=== PATIENT | male | born 1980 | race Caucasian/White ===

== ENCOUNTER 2018-07-08 07:45 | Inpatient (IN) | payer MEDICAID ==
[2018-07-08 11:47] LABS: WHITE BLOOD COUNT 2.4 10^3/ul (4.8-10.8)
[2018-07-08 11:47] LABS: ABNORMAL IP MESSAGE 1; HEMATOCRIT 34.1 % (42.0-52.0); HEMOGLOBIN 11.4 g/dl (14.0-18.0); MEAN CORPUSCULAR HEMOGLOBIN 34.1 pg (29.0-33.0); MEAN CORPUSCULAR HGB CONC 33.4 g/dl (32.0-37.0); MEAN CORPUSCULAR VOLUME 102.1 fl (82.0-101.0); MEAN PLATELET VOLUME 12.1 fl (7.4-10.4); PLATELET COUNT 33 10^3/UL (140-415); POSITIVE DIFF @See below; RED BLOOD COUNT 3.34 10^6/ul (4.70-6.10); RED CELL DISTRIBUTION WIDTH 15.2 % (11.5-14.5)
[2018-07-08 11:52] LABS: ADD MAN DIFF? YES
[2018-07-08 12:07] LABS: ALANINE AMINOTRANSFERASE 49 IU/L (13-69); ALBUMIN 2.6 g/dl (3.3-4.9); ALBUMIN/GLOBULIN RATIO 0.63; ALKALINE PHOSPHATASE 150 IU/L (42-121); ANION GAP 8 (5-13); ASPARTATE AMINO TRANSFERASE 67 IU/L (15-46); BILIRUBIN,INDIRECT 2.7 mg/dl (0-1.1); BILIRUBIN,TOTAL 2.7 mg/dl (0.2-1.3); BLOOD UREA NITROGEN 12 mg/dl (7-20); CALCIUM 7.9 mg/dl (8.4-10.2); CARBON DIOXIDE 24 mmol/L (21-31); CHLORIDE 108 mmol/L (97-110); CREATININE 0.57 mg/dl (0.61-1.24); Estimated GFR > 60 mL/min (>60); GLUCOSE 87 mg/dl (70-220); POTASSIUM 4.1 mmol/L (3.5-5.1); SODIUM 140 mmol/L (135-144); TOTAL PROTEIN 6.7 g/dl (6.1-8.1)
[2018-07-08 12:43] LABS: ANISOCYTOSIS 1+ (0-0); BAND NEUTROPHILS #M 0.1 10^3/ul (0.0-0.6); BAND NEUTROPHILS % (M) 5 % (0-4); EOSINOPHILS % (M) 5 % (0-7); GIANT THROMBO% (M) 1 % (0-0); LYMPHOCYTES #M 0.2 10^3/ul (0.8-2.9); LYMPHOCYTES % (M) 11 % (15-51); MONOCYTES % (M) 3 % (0-11); PLATELET ESTIMATE SIG DECREASED; POIKILOCYTOSIS 1+ (0-0); REACTIVE LYMPHOCYTES% (M) 2 % (0-0); SEG NEUT #M 1.8 10^3/ul (1.6-7.5); SEGMENTED NEUTROPHILS (M) % 74 % (39-77); SMUDGE%M 21 % (0-0)
[2018-07-08] MEDS: ONDANSETRON 4 MG INJ IV (13:09)
[2018-07-08] MEDS: HYDROmorphONE 1 MG/ML SYG IV (13:09)
[2018-07-08 13:15] LABS: INR 1.73; PARTIAL THROMBOPLASTIN TIME 35.5 Sec (23.0-35.0); PROTIME 20.3 Sec (11.9-14.9); PT RATIO 1.6
[2018-07-08] MEDS ORDERED: ONDANSETRON 4 MG INJ IV ×2 (14:00→16:00)
[2018-07-08] MEDS ORDERED: ACETAMINOPHEN 325 MG TAB PO (14:00)
[2018-07-08] MEDS ORDERED: ZOLPIDEM 5 MG TAB PO (16:00)
[2018-07-08] MEDS ORDERED: NACL 0.9% 3 ML SYG IV (16:00)
[2018-07-08] MEDS ORDERED: DOCUSATE SODIUM 100 MG CAP PO (16:00)
[2018-07-08] MEDS ORDERED: traMADol 50 MG TAB PO (18:00)
[2018-07-08] MEDS: morphine 4 MG/ML VIAL IV ×2 (18:14→22:26)
[2018-07-08] MEDS: FUROSEMIDE 40 MG INJ IV (18:15)
[2018-07-08] MEDS: SPIRONOLACTONE 50 MG TAB PO (18:15)
[2018-07-09 05:45] LABS: ADD MAN DIFF? NO
[2018-07-09 06:01] LABS: WHITE BLOOD COUNT 2.6 10^3/ul (4.8-10.8)
[2018-07-09 06:01] LABS: ABNORMAL IP MESSAGE 1; BASOPHILS % 0.4 % (0.0-2.0); EOSINOPHILS # 0.1 10^3/ul (0.0-0.5); EOSINOPHILS % 4.9 % (0.0-7.0); HEMATOCRIT 32.8 % (42.0-52.0); LYMPHOCYTES # 0.7 10^3/ul (0.8-2.9); LYMPHOCYTES % 25.1 % (15.0-51.0); MEAN CORPUSCULAR HEMOGLOBIN 34.2 pg (29.0-33.0); MEAN CORPUSCULAR HGB CONC 33.5 g/dl (32.0-37.0); MEAN CORPUSCULAR VOLUME 101.9 fl (82.0-101.0); MEAN PLATELET VOLUME 12.1 fl (7.4-10.4); MONOCYTE # 0.3 10^3/ul (0.3-0.9); MONOCYTES % 10.3 % (0.0-11.0); NEUTROPHIL # 1.6 10^3/ul (1.6-7.5); NEUTROPHILS % 59.3 % (39.0-77.0); PLATELET COUNT 33 10^3/UL (140-415); POSITIVE DIFF @See below; RED BLOOD COUNT 3.22 10^6/ul (4.70-6.10); RED CELL DISTRIBUTION WIDTH 15.3 % (11.5-14.5)
[2018-07-09 06:20] LABS: ALANINE AMINOTRANSFERASE 44 IU/L (13-69); ALBUMIN 2.4 g/dl (3.3-4.9); ALBUMIN/GLOBULIN RATIO 0.64; ALKALINE PHOSPHATASE 113 IU/L (42-121); ANION GAP 5 (5-13); ASPARTATE AMINO TRANSFERASE 58 IU/L (15-46); BILIRUBIN,INDIRECT 2.5 mg/dl (0-1.1); BILIRUBIN,TOTAL 2.5 mg/dl (0.2-1.3); BLOOD UREA NITROGEN 13 mg/dl (7-20); CALCIUM 7.8 mg/dl (8.4-10.2); CARBON DIOXIDE 27 mmol/L (21-31); CHLORIDE 111 mmol/L (97-110); CREATININE 0.66 mg/dl (0.61-1.24); Estimated GFR > 60 mL/min (>60); GLUCOSE 91 mg/dl (70-220); MAGNESIUM 1.8 mg/dl (1.7-2.5); PHOSPHORUS 4.3 mg/dl (2.5-4.9); POTASSIUM 3.7 mmol/L (3.5-5.1); SODIUM 143 mmol/L (135-144); TOTAL PROTEIN 6.1 g/dl (6.1-8.1)
[2018-07-09] MEDS: SPIRONOLACTONE 50 MG TAB PO ×2 (06:28→17:53)
[2018-07-09] MEDS: FUROSEMIDE 40 MG INJ IV ×2 (06:28→17:53)
[2018-07-09 07:24] LABS: HEMOGLOBIN A1C 4.3 % (0-5.9)
[2018-07-09 18:48] LABS: OCCULT BLOOD STOOL NEGATIVE (NEGATIVE)
[2018-07-09] MEDS ORDERED: ACETAMINOPHEN 325 MG TAB PO (19:00)
[2018-07-10] MEDS: morphine 4 MG/ML VIAL IV (00:13)
[2018-07-10] MEDS: SPIRONOLACTONE 50 MG TAB PO ×2 (05:19→17:39)
[2018-07-10] MEDS: FUROSEMIDE 40 MG INJ IV (05:20)
[2018-07-10 05:24] LABS: WHITE BLOOD COUNT 2.1 10^3/ul (4.8-10.8)
[2018-07-10 05:25] LABS: ABNORMAL IP MESSAGE 1; HEMATOCRIT 31.6 % (42.0-52.0); HEMOGLOBIN 10.5 g/dl (14.0-18.0); MEAN CORPUSCULAR HEMOGLOBIN 34.1 pg (29.0-33.0); MEAN CORPUSCULAR HGB CONC 33.2 g/dl (32.0-37.0); MEAN CORPUSCULAR VOLUME 102.6 fl (82.0-101.0); MEAN PLATELET VOLUME 11.9 fl (7.4-10.4); PLATELET COUNT 32 10^3/UL (140-415); POSITIVE DIFF @See below; RED BLOOD COUNT 3.08 10^6/ul (4.70-6.10); RED CELL DISTRIBUTION WIDTH 15.3 % (11.5-14.5)
[2018-07-10 05:28] LABS: HAAIG REFLEX REFLEX FILED
[2018-07-10 05:36] LABS: ADD MAN DIFF? YES
[2018-07-10 05:46] LABS: HEMOGLOBIN A1C 4.4 % (0-5.9)
[2018-07-10 05:53] LABS: ALANINE AMINOTRANSFERASE 43 IU/L (13-69); ALBUMIN 2.3 g/dl (3.3-4.9); ALKALINE PHOSPHATASE 112 IU/L (42-121); ANION GAP -1 (5-13); ASPARTATE AMINO TRANSFERASE 54 IU/L (15-46); BLOOD UREA NITROGEN 14 mg/dl (7-20); CALCIUM 7.6 mg/dl (8.4-10.2); CARBON DIOXIDE 29 mmol/L (21-31); CHLORIDE 111 mmol/L (97-110); CREATININE 0.71 mg/dl (0.61-1.24); Estimated GFR > 60 mL/min (>60); GLUCOSE 95 mg/dl (70-220); POTASSIUM 4.5 mmol/L (3.5-5.1); SODIUM 139 mmol/L (135-144); TOTAL PROTEIN 6.1 g/dl (6.1-8.1)
[2018-07-10 07:44] LABS: MAGNESIUM 1.6 mg/dl (1.7-2.5)
[2018-07-10 07:44] LABS: PHOSPHORUS 4.2 mg/dl (2.5-4.9)
[2018-07-10 08:15] LABS: HEPATITIS B SURFACE ANTIGEN NEGATIVE (NEGATIVE)
[2018-07-10 08:34] LABS: HEPATITIS B CORE ANTIBODY NEGATIVE (NEGATIVE); HEPATITIS C VIRAL ANTIBODY NEGATIVE (NEGATIVE)
[2018-07-10 08:54] LABS: ANISOCYTOSIS 1+ (0-0); BAND NEUTROPHILS #M 0.1 10^3/ul (0.0-0.6); BAND NEUTROPHILS % (M) 5 % (0-4); EOSINOPHILS % (M) 12 % (0-7); LYMPHOCYTES #M 0.3 10^3/ul (0.8-2.9); LYMPHOCYTES % (M) 17 % (15-51); MONOCYTE #M 0.1 10^3/ul (0.3-0.9); MONOCYTES % (M) 5 % (0-11); PLATELET ESTIMATE SIG DECREASED; POIKILOCYTOSIS 1+ (0-0); REACTIVE LYMPHOCYTES% (M) 2 % (0-0); SEG NEUT #M 1.2 10^3/ul (1.6-7.5); SEGMENTED NEUTROPHILS (M) % 59 % (39-77); SMUDGE%M 56 % (0-0)
[2018-07-10] MEDS: FUROSEMIDE 20 MG TAB PO (17:39)
[2018-07-10] MEDS: NADOLOL 40 MG TAB PO (17:40)
[2018-07-10] MEDS: MAGNESIUM OXIDE 400 MG TAB PO (21:26)
[2018-07-10] MEDS: GUAIFENESIN/DM 5ML CUP PO (21:36)
[2018-07-11] MEDS: PANTOPRAZOLE (EC) 40 MG TAB PO (05:48)
[2018-07-11] MEDS: SPIRONOLACTONE 50 MG TAB PO (05:49)
[2018-07-11] MEDS: FUROSEMIDE 20 MG TAB PO (05:49)
[2018-07-11] MEDS: GUAIFENESIN/DM 5ML CUP PO (05:54)
[2018-07-11] MEDS: NADOLOL 40 MG TAB PO (08:55)
[2018-07-11] MEDS: MAGNESIUM OXIDE 400 MG TAB PO (08:55)
== END 2018-07-11 14:18 | disposition home or self-care (01) | DRG 433 ==
LOC: PP2 07-10 21:13 → E/R 07:45 → PP2 13:34
DX: K70.31 Alcoholic cirrhosis of liver with ascites (principal); D61.818 Other pancytopenia; K76.6 Portal hypertension; F10.20 Alcohol dependence, uncomplicated; K64.9 Unspecified hemorrhoids
CPT/HCPCS: 71045; 76705; 80053; 82270; 83036; 83735; 84100; 84443; 85025; 85610; 85730; 86704; 86709; 86803; 87340; 99285-25

== ENCOUNTER 2018-07-16 10:10 | Emergency (ER) | payer MEDICAID | END 2018-07-16 12:24 | disposition home or self-care (01) | LOC: E/R 10:10 | DX: R18.8 Other ascites (principal); R10.84 Generalized abdominal pain | CPT/HCPCS: 76705; 99285-25 ==

== ENCOUNTER 2018-07-27 17:11 | Observation (INO) | payer MEDICAID ==
[2018-07-27] MEDS: SOD CHLORIDE 0.9% 500 ML IV (22:51)
[2018-07-27] MEDS: HYDROmorphONE 1 MG/ML SYG IV (22:51)
[2018-07-27] MEDS: ONDANSETRON 4 MG INJ IV (22:51)
[2018-07-27 23:01] LABS: ABNORMAL IP MESSAGE 1; HEMATOCRIT 36.5 % (42.0-52.0); HEMOGLOBIN 12.3 g/dl (14.0-18.0); MEAN CORPUSCULAR HEMOGLOBIN 34.4 pg (29.0-33.0); MEAN CORPUSCULAR HGB CONC 33.7 g/dl (32.0-37.0); PLATELET COUNT 51 10^3/UL (140-415); POSITIVE DIFF @See below; RED BLOOD COUNT 3.58 10^6/ul (4.70-6.10); RED CELL DISTRIBUTION WIDTH 15.7 % (11.5-14.5)
[2018-07-27 23:01] LABS: WHITE BLOOD COUNT 3.6 10^3/ul (4.8-10.8)
[2018-07-27 23:07] LABS: ADD MAN DIFF? YES
[2018-07-27 23:21] LABS: ADD UMIC YES; UR ASCORBIC ACID NEGATIVE (NEGATIVE); UR BILIRUBIN (Dip) NEGATIVE (NEGATIVE); UR BLOOD (Dip) 1+ mg/dL (NEGATIVE); UR CLARITY CLEAR (CLEAR); UR COLOR AMBER (YELLOW); UR GLUCOSE (Dip) NEGATIVE (NEGATIVE); UR KETONES (Dip) NEGATIVE (NEGATIVE); UR LEUKOCYTE ESTERASE (Dip) NEGATIVE Leu/ul (NEGATIVE); UR MUCUS MODERATE /HPF (NONE SEEN); UR NITRITE (Dip) NEGATIVE (NEGATIVE); UR RBC 5 /HPF (0-5); UR SPECIFIC GRAVITY (Dip) 1.027 (1.003-1.030); UR TOTAL PROTEIN (Dip) NEGATIVE (NEGATIVE); UR UROBILINOGEN (Dip) 2+ mg/dL (NEGATIVE); UR WBC 5 /HPF (0-5)
[2018-07-27 23:22] LABS: ALANINE AMINOTRANSFERASE 46 IU/L (13-69); ALBUMIN 2.6 g/dl (3.3-4.9); ALKALINE PHOSPHATASE 177 IU/L (42-121); ANION GAP 11 (5-13); ASPARTATE AMINO TRANSFERASE 45 IU/L (15-46); BILIRUBIN,INDIRECT 2.1 mg/dl (0-1.1); BILIRUBIN,TOTAL 2.1 mg/dl (0.2-1.3); BLOOD UREA NITROGEN 13 mg/dl (7-20); CARBON DIOXIDE 24 mmol/L (21-31); CHLORIDE 103 mmol/L (97-110); CREATININE 0.63 mg/dl (0.61-1.24); Estimated GFR > 60 mL/min (>60); GLUCOSE 88 mg/dl (70-220); LIPASE 138 U/L (23-300); POTASSIUM 4.1 mmol/L (3.5-5.1); SODIUM 138 mmol/L (135-144); TOTAL PROTEIN 6.9 g/dl (6.1-8.1)
[2018-07-27] MEDS: SOD CHLORIDE 0.9% 100 ML (23:55)
[2018-07-27] MEDS: IOHEXOL 300MG/ML 150 ML BTL (23:55)
[2018-07-28 00:25] LABS: ANISOCYTOSIS 3+ (0-0); BAND NEUTROPHILS #M 0.2 10^3/ul (0.0-0.6); BAND NEUTROPHILS % (M) 6 % (0-4); EOSINOPHILS % (M) 10 % (0-7); LYMPHOCYTES #M 0.3 10^3/ul (0.8-2.9); LYMPHOCYTES % (M) 10 % (15-51); METAMYELOCYTES %M 1 % (0-0); MONOCYTES % (M) 2 % (0-11); MYELOCYTES % (M) 1 % (0-0); PLATELET ESTIMATE DECREASED; POIKILOCYTOSIS 2+ (0-0); POLYCHROMASIA 3+ (0-0); PROMYELOCYTES % (M) 1 % (0-0); SEG NEUT #M 2.5 10^3/ul (1.6-7.5); SEGMENTED NEUTROPHILS (M) % 69 % (39-77); SMUDGE%M 4 % (0-0)
[2018-07-28] MEDS ORDERED: HYDROCODONE/APAP (5/325) TAB PO (01:30)
[2018-07-28] MEDS ORDERED: NACL 0.9% 3 ML SYG IV (01:30)
[2018-07-28] MEDS: FUROSEMIDE 20 MG TAB PO ×2 (05:46→18:55)
[2018-07-28] MEDS: PANTOPRAZOLE (EC) 40 MG TAB PO (05:46)
[2018-07-28] MEDS: NADOLOL 40 MG TAB PO (08:59)
[2018-07-28] MEDS: MAGNESIUM OXIDE 400 MG TAB PO ×2 (08:59→22:09)
[2018-07-28] MEDS: SPIRONOLACTONE 50 MG TAB PO (08:59)
[2018-07-28 09:04] LABS: PROTIME 20.1 Sec (11.9-14.9); PT RATIO 1.6
[2018-07-28] MEDS: LIDOCAINE 1% (MPF) 5 ML VIAL (12:53)
[2018-07-28 14:10] LABS: FLD MN% 91.7 %; FLD PMN% 8.3 %; FLD RBC 4000 /uL; FLD WBC 242 /cmm
[2018-07-28 14:19] LABS: FLUID GLUCOSE 97 mg/dl; FLUID LD 256 U/L; FLUID TYPE THORACENTESIS FLUID
[2018-07-28 14:20] LABS: FLUID TOTAL PROTEIN < 2.0 g/dl
[2018-07-28 14:53] LABS: FLD TYPE THORACENTHESIS
[2018-07-28 14:53] LABS: FLD CLARITY HAZY
[2018-07-28 14:54] LABS: FLD COLOR YELLOW
[2018-07-29] MEDS: PANTOPRAZOLE (EC) 40 MG TAB PO (05:14)
[2018-07-29] MEDS: FUROSEMIDE 20 MG TAB PO (05:14)
[2018-07-29 06:13] LABS: ADD MAN DIFF? NO
[2018-07-29 06:28] LABS: ABNORMAL IP MESSAGE 1; BASOPHILS % 0.7 % (0.0-2.0); EOSINOPHILS # 0.2 10^3/ul (0.0-0.5); HEMATOCRIT 34.8 % (42.0-52.0); HEMOGLOBIN 11.5 g/dl (14.0-18.0); LYMPHOCYTES # 0.7 10^3/ul (0.8-2.9); MEAN CORPUSCULAR HEMOGLOBIN 34.3 pg (29.0-33.0); MEAN CORPUSCULAR VOLUME 103.9 fl (82.0-101.0); MEAN PLATELET VOLUME 11.4 fl (7.4-10.4); MONOCYTE # 0.3 10^3/ul (0.3-0.9); MONOCYTES % 10.7 % (0.0-11.0); NEUTROPHIL # 1.5 10^3/ul (1.6-7.5); NEUTROPHILS % 56.2 % (39.0-77.0); PLATELET COUNT 45 10^3/UL (140-415); POSITIVE DIFF @See below; RED BLOOD COUNT 3.35 10^6/ul (4.70-6.10); RED CELL DISTRIBUTION WIDTH 15.1 % (11.5-14.5)
[2018-07-29 06:28] LABS: WHITE BLOOD COUNT 2.7 10^3/ul (4.8-10.8)
[2018-07-29 06:48] LABS: INR 1.81; PROTIME 21.1 Sec (11.9-14.9); PT RATIO 1.6
[2018-07-29 06:49] LABS: PARTIAL THROMBOPLASTIN TIME 37.9 Sec (23.0-35.0)
[2018-07-29 06:53] LABS: AMMONIA 33 umol/l (9-30)
[2018-07-29 07:06] LABS: MAGNESIUM 1.6 mg/dl (1.7-2.5)
[2018-07-29 07:06] LABS: PHOSPHORUS 3.9 mg/dl (2.5-4.9)
[2018-07-29 07:17] LABS: ALANINE AMINOTRANSFERASE 40 IU/L (13-69); ALBUMIN 2.1 g/dl (3.3-4.9); ALBUMIN/GLOBULIN RATIO 0.56; ALKALINE PHOSPHATASE 146 IU/L (42-121); ANION GAP 1 (5-13); ASPARTATE AMINO TRANSFERASE 45 IU/L (15-46); BILIRUBIN,INDIRECT 1.7 mg/dl (0-1.1); BILIRUBIN,TOTAL 1.7 mg/dl (0.2-1.3); BLOOD UREA NITROGEN 13 mg/dl (7-20); CALCIUM 7.8 mg/dl (8.4-10.2); CARBON DIOXIDE 29 mmol/L (21-31); CHLORIDE 106 mmol/L (97-110); CREATININE 0.64 mg/dl (0.61-1.24); Estimated GFR > 60 mL/min (>60); GLUCOSE 90 mg/dl (70-220); POTASSIUM 4.8 mmol/L (3.5-5.1); SODIUM 136 mmol/L (135-144); TOTAL PROTEIN 5.8 g/dl (6.1-8.1)
[2018-07-29 07:17] LABS: HEMOGLOBIN A1C 4.3 % (0-5.9)
[2018-07-29] MEDS: MAGNESIUM OXIDE 400 MG TAB PO (08:16)
[2018-07-29] MEDS: NADOLOL 40 MG TAB PO (08:16)
[2018-07-29] MEDS: SPIRONOLACTONE 50 MG TAB PO (08:16)
== END 2018-07-29 12:25 | disposition home or self-care (01) ==
LOC: E/R 17:11 → PP2 07-28 00:23
DX: K70.31 Alcoholic cirrhosis of liver with ascites (principal); J90 Pleural effusion, not elsewhere classified; D61.818 Other pancytopenia; D68.9 Coagulation defect, unspecified
CPT/HCPCS: 32555; 36415; 71045; 74177; 76705; 76942; 80053; 81001; 82140; 82945; 83036; 83615; 83690; 83735; 84100; 84157; 85025; 85610; 85730; 87070; 87081; 87102; 87116; 89051; 96374; 96375; 97161; 99285-25; G0378